=== PATIENT | male | born 1945 | race Caucasian/White ===

== ENCOUNTER → 2018-07-19 | Outpatient (CLI) | payer MEDICARE ==
--- NOTE | 2018-07-19 12:49 | Diagnostic Imaging Report ---
Exam: Lumbar spine radiographs-5 views, sacral radiographs-3 views, right hip radiographs-3 views. History: Low back pain. Comparison: None. Findings: Lumbar spine: S-shaped curvature of the thoracolumbar spine. Minimal anterolisthesis of L5 on S1. Diffuse osteopenia. Vertebral body heights are preserved. Moderate degenerative disc and facet degenerative changes, most pronounced at L5-S1. Atherosclerotic vascular calcifications. Sacrum: Diffuse osteopenia. Bowel gas partially obscures visualization of the sacrum. No evidence of acute displaced fracture, malalignment, or soft tissue abnormality. Right hip: There are mild degenerative changes of the right hip. Partially seen right proximal femoral fixation hardware appears intact. No evidence of acute fracture or malalignment. Diffuse atherosclerotic vascular calcifications. Impression: No evidence of acute fracture or malalignment in the lumbar spine, sacrum, or right hip. Moderate degenerative disc and facet degenerative changes in the lower lumbar spine. Status post ORIF of the right proximal femur with intact alignment. Mild right hip degenerative changes. Signed by: Dr. Johny Javier MD on 07/19/2018 12:45 PM
== END ==
LOC: RAD 11:00
PROVIDERS: ATTEND Internal Medicine
DX: M54.5 Low back pain (principal); M16.11 Unilateral primary osteoarthritis, right hip
CPT/HCPCS: 72110; 72220